=== PATIENT | male | born 1955 | race Caucasian/White ===

== ENCOUNTER 2022-12-07 20:15 | Inpatient (IN) | payer OTHER ==
[~2022-12-07] VITALS: Ht 170.2 cm; Wt 81.0 kg
[~2022-12-07 20:15] MED LIST: HYDCHL25 PO
[2022-12-07 20:40] LABS: BASOPHILS ABSOLUTE AUTO 0.06 K/mm3 (0.00-0.23); BASOPHILS PERCENT AUTO 1 % (0-2); EOSINOPHILS PERCENT AUTO 6 % (0-6); Hematocrit 43.9 % (37.0-53.0); Hemoglobin 15.2 g/dL (13.5-17.5); IMMATURE GRAN ABSOLUTE AUTO 0.01 K/mm3 (0.00-0.10); IMMATURE GRAN PERCENT AUTO 0 % (0-1); LYMPHOCYTES ABSOLUTE AUTO 1.94 K/mm3 (0.84-5.20); LYMPHOCYTES PERCENT AUTO 36 % (21-46); MONOCYTES ABSOLUTE AUTO 0.51 K/mm3 (0.16-1.47); MONOCYTES PERCENT AUTO 9 % (4-13); Mean Corpuscular HGB 32.1 pg (26.0-34.0); Mean Corpuscular HGB Conc 34.6 g/dL (31.5-36.5); Mean Corpuscular Volume 93 fL (80-100); Mean Platelet Volume 9.8 fL (9.1-12.4); NEUTROPHILS ABSOLUTE AUTO 2.65 K/mm3 (1.96-9.15); NEUTROPHILS PERCENT AUTO 48 % (41-73); Platelet Count 238 K/mm3 (150-400); RDW Coefficient Variation 13.5 % (11.7-14.2); RDW Standard Deviation 46.9 fL (35.1-46.3); Red Blood Cell Count 4.73 M/mm3 (4.30-5.90); White Blood Cell Count 5.47 K/mm3 (4.00-11.30)
[2022-12-07 20:57] LABS: Albumin, Blood 3.7 g/dL (3.4-5.0); Bilirubin, Total 0.3 mg/dL (0.1-1.0); Bun/Creatinine Ratio 22.1 (12.0-20.0); Calcium, Blood 8.8 mg/dL (8.5-10.1); Creatinine, Blood 0.86 mg/dL (0.60-1.20); Globulin, Blood 3.6 g/dL (2.2-4.0); Potassium, Blood 4.4 mmol/L (3.5-5.5); Total Protein, Blood 7.3 g/dL (6.4-8.2)
[2022-12-07 23:33] LABS: Anti-Xa UFH, PHA Monitoring <0.10 IU/mL; International Normalized Ratio 0.98; Prothrombin Time Results 10.3 Sec (9.7-11.5)
[2022-12-08 02:38] LABS: CHOL/HDL RATIO 3.4; Cholesterol 224 mg/dL (50-200); HDL Cholesterol 65 mg/dL (>39); LDL/HDL RATIO 2.1; Low Density Lipoprotein Chol 135 mg/dL (0-110); Triglycerides 119 mg/dL (30-160); Very Low Density Lipoprot Chol 23 mg/dL (6-32)
--- NOTE | 2022-12-08 03:30 | NUR ---
END OF SHIFT: PATIENT IS ALERT AND ORIENTED. ABLE TO MAKE NEEDS KNOWN, PLEASANT AND COOPERATIVE WITH CARE. PATIENT CHEST PAIN HAS BEEN STABLE AT A 2 IMPROVED WITH HEPARIN GTT. TROPONIN SLOWLY TRENDING UP. CARDIOLOGY ON BOARD. PATIENT AMBULATES WELL, NO CONCERNS FROM THIS RN AT THIS TIME, PATIENT HAS BEEN IN NO ACUTE DISTRESS. HAS NO CONCERNS AT THIS TIME. BLOOD PRESSURE IMPROVED DRAMATICALLY WITH HYDRALAZINE ON BOARD. WILL CONTINUE TO MONITOR UNTIL SHIFT CHANGE.
[2022-12-08 03:43] LABS: BASOPHILS ABSOLUTE AUTO 0.06 K/mm3 (0.00-0.23); BASOPHILS PERCENT AUTO 1 % (0-2); EOSINOPHILS ABSOLUTE AUTO 0.29 K/mm3 (0.00-0.68); EOSINOPHILS PERCENT AUTO 5 % (0-6); Hematocrit 42.4 % (37.0-53.0); Hemoglobin 14.7 g/dL (13.5-17.5); IMMATURE GRAN ABSOLUTE AUTO 0.01 K/mm3 (0.00-0.10); IMMATURE GRAN PERCENT AUTO 0 % (0-1); LYMPHOCYTES ABSOLUTE AUTO 1.86 K/mm3 (0.84-5.20); LYMPHOCYTES PERCENT AUTO 31 % (21-46); MONOCYTES ABSOLUTE AUTO 0.48 K/mm3 (0.16-1.47); MONOCYTES PERCENT AUTO 8 % (4-13); Mean Corpuscular HGB 31.5 pg (26.0-34.0); Mean Corpuscular HGB Conc 34.7 g/dL (31.5-36.5); Mean Corpuscular Volume 91 fL (80-100); NEUTROPHILS ABSOLUTE AUTO 3.25 K/mm3 (1.96-9.15); NEUTROPHILS PERCENT AUTO 55 % (41-73); Platelet Count 221 K/mm3 (150-400); RDW Coefficient Variation 13.5 % (11.7-14.2); RDW Standard Deviation 46.1 fL (35.1-46.3); Red Blood Cell Count 4.67 M/mm3 (4.30-5.90); White Blood Cell Count 5.95 K/mm3 (4.00-11.30)
[2022-12-08 05:28] LABS: Albumin, Blood 3.6 g/dL (3.4-5.0); Albumin/Globulin Ratio 1.1 (0.8-1.8); Bilirubin, Total 0.4 mg/dL (0.1-1.0); Calcium, Blood 8.9 mg/dL (8.5-10.1); Creatinine, Blood 0.7 mg/dL (0.60-1.20); Globulin, Blood 3.4 g/dL (2.2-4.0); Potassium, Blood 3.7 mmol/L (3.5-5.5)
--- NOTE | 2022-12-08 17:51 | NUR ---
SHIFT SUMMARY PT HAS BEEN RESTING QUIETLY IN ROOM SINCE [facility]ING [facility]. PT HAS BEEN IN GOOD SPIRITS AND COOPERATIVE WITH ALL CARES. PT HAS FOLLOWED ALL POST PROCEDURE INSTRUCTIONS AND VERBALIZED AN UNDERSTANDING OF MOBILITY RESTRICTIONS. TR BAND IS IN PLACE OVER RIGHT RADIAL SITE. PALPATION REVEALS AN ABSENCE OF HEMATOMA AND TENDERNESS, DISTAL PULSES ARE PRESENT AND EQUAL BILATERALLY. PT DENIES ANY C/O CHEST PAIN/DISCOMFORT.
--- NOTE | 2022-12-08 21:13 | NUR ---
TR BAND RECOVERY PT HAD 10CC'S OF AIR IN THE TR BAND POST ANGIO. AIR REMOVAL FOLLOWED: 1930: 2CC'S REMOVED (8CC'S LEFT); NO BLEEDING, HEMATOMA, NUMBNESS, OR ISSUES. 1944: 2CC'S REMOVED (6CC'S LEFT); NO BLEEDING, HEMATOMA, NUMBNESS, OR ISSUES. 2014: 2CC'S REMOVED (4CC'S LEFT); NO BLEEDING, HEMATOMA, NUMBENESS, OR ISSUES. 2029: 2CC'S REMOVED (2CC'S LEFT); NO BLEEDING, HEMATOMA, NUMBNESS, OR ISSUES. 2044: ALL AIR REMOVED, TR BAND IN PLACE; NO BLEEDING, HEMATOMA, NUMBNESS. AT 2099 A THE SITE WAS CLEANED AND A TEGADERM WAS PLACED OVER THE SITE. ARM BOARD PLACED FOR SUPPORT AND PT EDUCATED NOT TO USE HIS RIGHT ARM STILL.
--- NOTE | 2022-12-08 21:32 | NUR ---
ADVERSE REACTION TO BRILINTA AT 2014 PT WAS GIVEN BRILINTA 90MG PO. AT ABOUT 2049 HE STARTED HAVING EXTREME SOB, ANXIETY, NAUSEA, HAVING HOT AND COLD FLASHES, AND HIS BP INCREASED. HE WAS PUT ON 2L NC FOR COMFORT, IV FLUIDS PUT ON HOLD, GIVEN A WARM BLANKET AND A FAN, AND REPOSITIONED TO FOWLERS IN BED. PT REFUSED ZOFRAN TO HELP WITH NAUSEA, BUT WAS ABLE TO BE COACHED IN DEEP BREATHING TO CALM DOWN. HE IS FEELING BETTER SINCE INTERVENTIONS LISTED ABOVE. DR. URBANO WAS CALLED AND NOTIFIED OF THE PT'S CONDITION AND SHE STATED TO CHART AGAINST THE NEXT DOSE OF BRILINTA, D/C THE FLUIDS, AND TO HAVE CARDIOLOGY REASSESS IN THE MORNING. SEE NOTES FOR ANY UPDATES.
[2022-12-09 01:32] LABS: BASOPHILS ABSOLUTE AUTO 0.04 K/mm3 (0.00-0.23); BASOPHILS PERCENT AUTO 1 % (0-2); EOSINOPHILS ABSOLUTE AUTO 0.23 K/mm3 (0.00-0.68); EOSINOPHILS PERCENT AUTO 4 % (0-6); Hematocrit 41.5 % (37.0-53.0); Hemoglobin 14.4 g/dL (13.5-17.5); IMMATURE GRAN ABSOLUTE AUTO 0.01 K/mm3 (0.00-0.10); IMMATURE GRAN PERCENT AUTO 0 % (0-1); LYMPHOCYTES ABSOLUTE AUTO 0.89 K/mm3 (0.84-5.20); LYMPHOCYTES PERCENT AUTO 15 % (21-46); MONOCYTES ABSOLUTE AUTO 0.57 K/mm3 (0.16-1.47); MONOCYTES PERCENT AUTO 9 % (4-13); Mean Corpuscular HGB 32.2 pg (26.0-34.0); Mean Corpuscular HGB Conc 34.7 g/dL (31.5-36.5); Mean Corpuscular Volume 93 fL (80-100); Mean Platelet Volume 9.9 fL (9.1-12.4); NEUTROPHILS ABSOLUTE AUTO 4.33 K/mm3 (1.96-9.15); NEUTROPHILS PERCENT AUTO 71 % (41-73); Platelet Count 188 K/mm3 (150-400); RDW Coefficient Variation 13.4 % (11.7-14.2); RDW Standard Deviation 46.3 fL (35.1-46.3); Red Blood Cell Count 4.47 M/mm3 (4.30-5.90); White Blood Cell Count 6.07 K/mm3 (4.00-11.30)
[2022-12-09 02:51] LABS: Calcium, Blood 8.6 mg/dL (8.5-10.1); Creatinine, Blood 0.82 mg/dL (0.60-1.20); Potassium, Blood 4.1 mmol/L (3.5-5.5)
--- NOTE | 2022-12-09 05:32 | NUR ---
SHIFT SUMMARY PT IS A&OX4, MOVES IND IN ROOM, HAS BEEN SB ON TELE T/O THE NIGHT, AND HAS DENIED ANY ANGINA. PT HAD ONE EVENT LAST NIGHT FROM AN ADVERSE REACTION TO BRILINTA. SEE PREVIOUS NOTE FOR MORE INFORMATION. HE HAS HAD NO MORE C/O SOB, ANXIETY, OR PAIN. THE PT SLEPT MOST OF THE NIGHT AND HIS RADIAL SITE HAS A TEGADERM INTACT AND THE SITE IS W/O ANY ISSUES. PER DR. VALDEZ AN EKG WAS OBTAINED AT 0500 AND HIS TROPS ARE TRENDING DOWN W/ A REDRAW AT 0900.HIS BED IS IN LOW AND CALL LIGHT IS IN REACH. WILL CONTINUE TO MONITOR UNTIL SHIFT REPORT IS GIVEN TO THE ONCOMING SHIFT RN. SEE NOTES FOR ANY UPDATES.
[2022-12-09] MEDS ORDERED: LISI20 PO (11:06)
[2022-12-09] MEDS ORDERED: Amlodipine Bes2.5 MG PO (11:06)
[2022-12-09] MEDS ORDERED: LIPITOR80 MG PO (11:06)
[2022-12-09] MEDS ORDERED: ASPI81CH PO (11:06)
[2022-12-09] MEDS ORDERED: CLOP75 PO (11:07)
[2022-12-09] MEDS ORDERED: METO25ER PO (11:07)
--- NOTE | 2022-12-09 11:44 | NUR ---
DISCHARGE SUMMARY PT AMBULATED TO PERSONAL VEHICLE ESCORTED BY FAMILY MEMBER. ALL PERSONAL BELONGINGS AND DISCHARGE INSTRUCTIONS WERE IN THE PT'S POSSESSION AT THE TIME OF DISCHARGE. ALL QUESTIONS AND CONCERNS WERE ADDRESSED PRIOR TO DISCHARGE. PT STATED AN UNDERSTANDING OF DISCHARGE INSTRUCTIONS.
== END 2022-12-09 11:40 | disposition home or self-care (01) | DRG 247 ==
LOC: ER 20:15 → PCU 23:34
PROVIDERS: Internal Medicine; Student in an Organized Health Care Education/Training Program; ADMIT Internal Medicine
PROC: 027035Z Dilation of Coronary Artery, One Artery with Two Drug-eluting Intraluminal Devices, Percutaneous Approach (ICD-10-PCS; principal; 2022-12-08)
PROC: 4A033BC Measurement of Arterial Pressure, Coronary, Percutaneous Approach (ICD-10-PCS; 2022-12-08)
PROC: 4A023N7 Measurement of Cardiac Sampling and Pressure, Left Heart, Percutaneous Approach (ICD-10-PCS; 2022-12-08)
PROC: B211YZZ Fluoroscopy of Multiple Coronary Arteries using Other Contrast (ICD-10-PCS; 2022-12-08)
PROC: B215YZZ Fluoroscopy of Left Heart using Other Contrast (ICD-10-PCS; 2022-12-08)
PROC: B240ZZ3 Ultrasonography of Single Coronary Artery, Intravascular (ICD-10-PCS; 2022-12-08)
DX: I21.4 Non-ST elevation (NSTEMI) myocardial infarction (principal); I16.1 Hypertensive emergency; F10.10 Alcohol abuse, uncomplicated; I10 Essential (primary) hypertension; F12.10 Cannabis abuse, uncomplicated; I25.10 Atherosclerotic heart disease of native coronary artery without angina pectoris; E78.5 Hyperlipidemia, unspecified; E66.3 Overweight; I65.29 Occlusion and stenosis of unspecified carotid artery; R00.1 Bradycardia, unspecified; R10.9 Unspecified abdominal pain; M25.511 Pain in right shoulder; M25.512 Pain in left shoulder; G89.29 Other chronic pain; R73.03 Prediabetes; B02.9 Zoster without complications; Z96.651 Presence of right artificial knee joint; Z87.891 Personal history of nicotine dependence; Z79.899 Other long term (current) drug therapy; I25.2 Old myocardial infarction; Z68.26 Body mass index [BMI] 26.0-26.9, adult; Z86.73 Personal history of transient ischemic attack (TIA), and cerebral infarction without residual deficits
CPT/HCPCS: 36415; 71046; 74176; 76937; 80048; 80053; 80061; 83036; 83690; 83880; 84443; 84484; 85025; 85347; 85520; 85610; 92978; 93005; 93010; 93306; 93458; 93571; 96374; 99152; 99153; 99285-25; A9270; C1725; C1753; C1769; C1874; C1887; C1894; C9600; J0153; J0360; J1644; J2250; J3010; J7030; J7050; Q9967

== ENCOUNTER 2024-09-25 09:20 | Emergency (ER) | payer OTHER ==
[~2024-09-25] VITALS: Ht 170.2 cm; Wt 77.1 kg
[~2024-09-25 09:20] MED LIST changes: +ASPI81CH PO; +Amlodipine Bes2.5 MG PO; +CLOP75 PO; +LIPITOR80 MG PO; +LISI20 PO; +METO25ER PO
[2024-09-25 09:59] LABS: BASOPHILS ABSOLUTE AUTO 0.05 K/mm3 (0.00-0.23); BASOPHILS PERCENT AUTO 1 % (0-2); EOSINOPHILS ABSOLUTE AUTO 0.14 K/mm3 (0.00-0.68); EOSINOPHILS PERCENT AUTO 4 % (0-6); Hematocrit 37.9 % (37.0-53.0); Hemoglobin 13.4 g/dL (13.5-17.5); IMMATURE GRAN ABSOLUTE AUTO 0.01 K/mm3 (0.00-0.10); IMMATURE GRAN PERCENT AUTO 0 % (0-1); LYMPHOCYTES ABSOLUTE AUTO 1.04 K/mm3 (0.84-5.20); LYMPHOCYTES PERCENT AUTO 27 % (21-46); MONOCYTES ABSOLUTE AUTO 0.37 K/mm3 (0.16-1.47); MONOCYTES PERCENT AUTO 10 % (4-13); Mean Corpuscular HGB 31.4 pg (26.0-34.0); Mean Corpuscular HGB Conc 35.4 g/dL (31.5-36.5); Mean Corpuscular Volume 89 fL (80-100); Mean Platelet Volume 9.2 fL (9.1-12.4); NEUTROPHILS PERCENT AUTO 58 % (41-73); Platelet Count 273 K/mm3 (150-400); RDW Coefficient Variation 12.8 % (11.7-14.2); RDW Standard Deviation 41.9 fL (35.1-46.3); Red Blood Cell Count 4.27 M/mm3 (4.30-5.90); White Blood Cell Count 3.81 K/mm3 (4.00-11.30)
[2024-09-25 10:23] LABS: Albumin/Globulin Ratio 1.1 (0.8-1.8); Bilirubin, Total 0.4 mg/dL (0.1-1.0); Calcium, Blood 8.6 mg/dL (8.5-10.1); Creatinine, Blood 0.82 mg/dL (0.60-1.20); Globulin, Blood 3.6 g/dL (2.2-4.0); Potassium, Blood 4.7 mmol/L (3.5-5.5); Total Protein, Blood 7.6 g/dL (6.4-8.2)
[2024-09-25 14:45] VITALS: BP 128/66
[2024-09-25] MEDS ORDERED: AMLODIPINE BESYL5 MG PO (15:28)
== END 2024-09-25 15:03 | disposition home or self-care (01) ==
LOC: ER 09:20
PROVIDERS: Physician Assistant
DX: R07.89 Other chest pain (principal); I25.2 Old myocardial infarction; F17.210 Nicotine dependence, cigarettes, uncomplicated; Z79.82 Long term (current) use of aspirin; Z79.899 Other long term (current) drug therapy
CPT/HCPCS: 71046; 80053; 84484; 85025; 93005; 93010; 99285-25